=== PATIENT | female | born 1935 | race Caucasian/White ===

== ENCOUNTER 2016-02-11 09:41 | Inpatient (IN) | payer OTHER ==
[~2016-02-11] VITALS: Ht 157.5 cm; Wt 93.6 kg
[~2016-02-11 09:41] MED LIST: ADULT LOW DOSE81 M1 PO; ALEVE220 MG PO; CARVEDILOL12.5 MG PO; GLIMEPIRIDE PO; GLIMEPIRIDE1 MG PO; GLUCOPHAGE1000 MG PO; GLUCOPHAGE500 MG PO; HYDROCHLOROTH12.5 MG PO; LISINOPRIL20 MG PO; MULTIPLE VITAM1 EACH PO; NORVASC2.5 MG PO; SIMVASTATIN40 M1 PO; SPIRONOLACTONE25 MG PO; ZOFRAN4 MG PO
[2016-03-26] MEDS ORDERED: NORVASC5 MG PO (15:52)
[2016-03-31 07:01] LABS: POINT-OF-CARE METER ID UU14174212
[2016-03-31 07:10] VITALS: BP 158/69
[2016-03-31 12:11] LABS: POINT-OF-CARE METER ID UU13113675
[2016-03-31 14:58] VITALS: BP 186/87
[2016-03-31 19:49] VITALS: BP 164/75
[2016-03-31 23:46] VITALS: BP 137/69
[2016-04-01 02:58] VITALS: BP 171/73
[2016-04-01 05:31] LABS: HEMATOCRIT 34.6 % (36.0-46.0); MCV 92.5 FL (83-99)
[2016-04-01 05:54] LABS: ANION GAP 7 MEQ/L (2-14); CHLORIDE 102 MEQ/L (99-109); GFR ESTIMATE (CALCULATED) 36 mL/min/; GLUCOSE 161 mg/dL (70-99); SAMPLE HEMOLYSIS CHECK 0; SAMPLE ICTERIC CHECK 0; SAMPLE LIPEMIA CHECK 0; SODIUM 136 MEQ/L (136-147); UREA NITROGEN (BUN) 24 mg/dL (9-23)
[2016-04-01 06:19] LABS: POINT-OF-CARE METER ID UU14149397
[2016-04-01 08:03] VITALS: BP 156/72
[2016-04-01 11:25] LABS: POINT-OF-CARE METER ID UU13113717
[2016-04-01 12:19] VITALS: BP 118/59
[2016-04-01 16:05] VITALS: BP 155/69
[2016-04-01 22:13] LABS: POINT-OF-CARE METER ID UU13113717
[2016-04-02] VITALS: BP 126/80
[2016-04-02 00:36] VITALS: BP 143/68
[2016-04-02 05:48] LABS: HEMATOCRIT 32.5 % (36.0-46.0); MCV 92.3 FL (83-99)
[2016-04-02 07:28] LABS: POINT-OF-CARE METER ID UU13113717
[2016-04-02 08:01] VITALS: BP 135/68
[2016-04-02 15:55] VITALS: BP 133/59
[2016-04-02 22:44] VITALS: BP 120/58
[2016-04-03] MEDS ORDERED: HYDROCODON-ACE1 EAC7 PO (08:12)
[2016-04-03] MEDS ORDERED: XARELTO10 MG PO (08:12)
[2016-04-03 08:30] VITALS: BP 169/74
== END 2016-04-03 13:31 | DRG 470 ==
LOC: 2SOUTH → 3EAST 03-31 06:21 → 2SOUTH 03-31 09:48 → 3EAST 03-31 14:25 → 2SOUTH 03-31 15:10 → 3EAST 04-03 13:31
PROVIDERS: Orthopaedic Surgery
PROC: 0SRD0J9 Replacement of Left Knee Joint with Synthetic Substitute, Cemented, Open Approach (ICD-10-PCS; principal; 2016-03-31)
DX: M17.12 Unilateral primary osteoarthritis, left knee (principal); I10 Essential (primary) hypertension; E11.9 Type 2 diabetes mellitus without complications; Z96.641 Presence of right artificial hip joint
CPT/HCPCS: 71010; 80048; 82948; 85014; 85018; C1713; J0131; J0690; J1170; J1815; J1885; J2405; J2795; J3010; J7030; J7050; L1820

== ENCOUNTER 2016-12-14 21:55 | Inpatient (IN) | payer OTHER ==
[~2016-12-14] VITALS: Ht 157.5 cm; Wt 86.5 kg
[~2016-12-14 21:55] MED LIST changes: +FEOSOL325 MG PO; -HYDROCHLOROTH12.5 MG PO; +HYDROCODON-ACE1 EAC7 PO; +LO-DOSE ASPIRIN81 M1 PO; +MICROZIDE12.5 M1 PO; +NORVASC5 MG PO; +VITAMIN B-12500 MC5 PO; +XARELTO10 MG PO
[2016-12-15 06:15] VITALS: BP 140/67
[2016-12-15 06:35] LABS: POINT-OF-CARE METER ID UU14174212
[2016-12-15 09:33] LABS: POINT-OF-CARE METER ID UU13113675
[2016-12-15 10:19] VITALS: BP 142/72
[2016-12-15 12:26] VITALS: BP 142/61
[2016-12-15 15:00] VITALS: BP 129/67
[2016-12-15 16:09] LABS: POINT-OF-CARE METER ID UU13113712
[2016-12-15 19:50] VITALS: BP 132/84
[2016-12-15 21:44] LABS: POINT-OF-CARE METER ID UU13113712
[2016-12-16] VITALS (10 sets, daily range): BP systolic 110–147; BP diastolic 56–83
[2016-12-16 05:15] LABS: CHLORIDE 108 mEq/L (99-109); POTASSIUM 5.1 mEq/L (3.7-5.4); SODIUM 136 mEq/L (136-147)
[2016-12-16 05:16] LABS: GLUCOSE 177 mg/dL (70-99)
[2016-12-16 05:16] LABS: HEMATOCRIT 34.3 % (36.0-46.0); MCV 96.6 FL (83-99)
[2016-12-16 05:18] LABS: ANION GAP 10 MEQ/L (2-14)
[2016-12-16 05:20] LABS: GFR ESTIMATE (CALCULATED) 33 mL/min/
[2016-12-16 05:21] LABS: UREA NITROGEN (BUN) 30 mg/dL (9-23)
[2016-12-16 07:51] LABS: POINT-OF-CARE METER ID UU13113712
[2016-12-16 11:25] LABS: POINT-OF-CARE METER ID UU13113712
[2016-12-16 16:34] LABS: POINT-OF-CARE METER ID UU13113712
[2016-12-16 19:16] LABS: TROP-I INTERPRETATION NEGATIVE; TROPONIN-I 0.03 ng/mL (0.0-0.30)
[2016-12-16 22:08] LABS: POINT-OF-CARE METER ID UU13113698
[2016-12-17 01:16] LABS: TROP-I INTERPRETATION NEGATIVE; TROPONIN-I 0.03 ng/mL (0.0-0.30)
[2016-12-17 03:00] VITALS: BP 113/66
[2016-12-17 05:27] LABS: HEMATOCRIT 30.6 % (36.0-46.0); MCV 95.9 FL (83-99)
[2016-12-17 05:45] LABS: TROP-I INTERPRETATION NEGATIVE; TROPONIN-I 0.02 ng/mL (0.0-0.30)
[2016-12-17 05:51] LABS: ANION GAP 7 MEQ/L (2-14); CHLORIDE 104 MEQ/L (99-109); GFR ESTIMATE (CALCULATED) 33 mL/min/; GLUCOSE 129 mg/dL (70-99); POTASSIUM 4.8 MEQ/L (3.7-5.4); SAMPLE HEMOLYSIS CHECK 0; SAMPLE ICTERIC CHECK 0; SAMPLE LIPEMIA CHECK 0; SODIUM 133 MEQ/L (136-147); UREA NITROGEN (BUN) 29 mg/dL (9-23)
[2016-12-17 07:44] LABS: POINT-OF-CARE METER ID UU13113781
[2016-12-17 08:45] VITALS: BP 120/65
[2016-12-17 11:35] LABS: POINT-OF-CARE METER ID UU13113781
[2016-12-17 12:14] VITALS: BP 136/80
[2016-12-17 16:42] LABS: POINT-OF-CARE METER ID UU13113781
[2016-12-17 16:53] VITALS: BP 111/66
[2016-12-17 19:30] VITALS: BP 103/57
[2016-12-17 21:23] LABS: POINT-OF-CARE METER ID UU13113781
[2016-12-17 23:42] VITALS: BP 102/52
[2016-12-18 03:06] VITALS: BP 106/66
[2016-12-18 07:38] LABS: POINT-OF-CARE METER ID UU14174216
[2016-12-18 08:32] VITALS: BP 115/57
[2016-12-18] MEDS ORDERED: ELIQUIS2.5 MG PO (09:35)
[2016-12-18] MEDS ORDERED: HYDROCODON-ACE1 EAC7 PO (09:35)
[2016-12-18 11:14] LABS: POINT-OF-CARE METER ID UU14174216
[2016-12-18 11:20] VITALS: BP 112/60
== END 2016-12-18 15:19 | DRG 470 ==
LOC: ENRESERV 21:55 → 3WEST 12-15 05:50 → 2SOUTH 12-15 05:50 → 3WEST 12-15 10:00 → 2SOUTH 12-15 10:39 → ENRESERV 12-16 16:57 → 4EAST 12-16 16:58 → ENRESERV 12-16 17:04 → 4EAST 12-16 17:17
PROVIDERS: Internal Medicine Cardiovascular Disease; Orthopaedic Surgery; Physician Assistant
PROC: 0SRC0J9 Replacement of Right Knee Joint with Synthetic Substitute, Cemented, Open Approach (ICD-10-PCS; principal; 2016-12-15)
DX: M17.11 Unilateral primary osteoarthritis, right knee (principal); I48.0 Paroxysmal atrial fibrillation; I10 Essential (primary) hypertension; E78.5 Hyperlipidemia, unspecified; E11.9 Type 2 diabetes mellitus without complications; Z96.652 Presence of left artificial knee joint
CPT/HCPCS: 71010; 80048; 82948; 84443; 84484; 85014; 85018; 93005; 93306; 93971; 94799; 97530 GP; C1713; J0131; J0690; J1170; J1815; J1885; J2250; J2405; J2550; J2795; J7030; J7040; J7050